=== PATIENT | female | born 1950 | race Caucasian/White ===

== ENCOUNTER 2023-12-18 17:25 | Emergency (ER) | payer MEDICARE ==
[2023-12-18] MEDS ORDERED: ONDANSETRON 4 MG/2 ML VIAL ONE (18:15)
[2023-12-18] MEDS ORDERED: FAMOTIDINE 20 MG/2 ML VIAL IV ONE (18:16)
[2023-12-18] MEDS ORDERED: NA CHLORIDE 0.9% 500 ML ONE (18:16)
[2023-12-18 18:28] LABS: Urine Bilirubin NEGATIVE (Negative); Urine Blood Negative (Negative); Urine Clarity Clear (Clear); Urine Color Light-Yellow (Yellow); Urine Glucose NEGATIVE (Negative); Urine Ketones 2+ (Negative); Urine Microscopic Reflex YN NO UMIC; Urine Nitrite NEGATIVE (Negative); Urine Protein NEGATIVE (Negative); Urine Urobilinogen Normal (Normal); Urine pH 5.5 (5.0-7.0)
[2023-12-18 18:38] LABS: Absolute Eosinophils 0.1 K/uL (0-0.5); Absolute Lymphocytes (CBC) 1.4 K/uL (0.7-4.9); Absolute Monocytes 0.3 K/uL (0.1-1.3); Absolute Neutrophil 3.3 K/uL (1.8-8.0); Basophils % 0.5 % (0-1.3); Eosinophils % 1.6 % (0-4.4); Hematocrit 42.4 % (36.0-45.0); Hemoglobin 14.2 g/dL (12.0-15.0); Lymphocytes % 27.7 % (15.3-44.8); MCH 30.6 pg (27.0-35.0); MCHC 33.4 g/dL (32.0-36.0); MCV 91.5 fL (80-100); MPV 7.6 fL (7.6-11.3); Monocytes % 6.6 % (3.3-12.3); Neutrophils % 63.6 % (41.7-73.7); Nucleated Red Blood Cells % 0.1 % (0-0); Platelets 262 thou/uL (152-406); RBC Red Blood Cell Count 4.63 M/uL (3.86-4.86)
[2023-12-18 18:48] LABS: Albumin/Globulin Ratio 1.3 (1.1-1.8); Anion Gap 10.5 mEq/L (5.0-15.0); Bilirubin Total 0.5 mg/dL (0.2-1.0); Globulin 3.1 g/dL (2.3-3.5); Potassium 3.5 mEq/L (3.5-5.1); Protein, Total 7.1 g/dL (6.4-8.2)
--- NOTE | 2023-12-18 19:31 | RAD REPORT ---
EXAM DESCRIPTION: CTAbdomen Pelvis W Contrast - 12/18/2023 7:21 pm CLINICAL HISTORY: Abdominal pain. ABD PAIN COMPARISON: <Comparisons> TECHNIQUE: Venous phase CT imaging of the abdomen and pelvis was performed with 100 ml non-ionic IV contrast. All CT scans are performed using dose optimization technique as appropriate and may include automated exposure control or mA/KV adjustment according to patient size. FINDINGS: Mild linear atelectasis in the left lung base. The liver demonstrates multiple benign cysts. Spleen, pancreas, adrenal glands and kidneys are within normal limits. No bowel obstruction, free air, free fluid or abscess. Significant stool is present throughout the co river. Diverticulosis coli without diverticulitis. The appendix is not identified as a discrete structu re, however, no secondary findings of appendicitis are identified. No evidence of significant lymph adenopathy. No suspicious bony findings. IMPRESSION: Significant stool is present throughout the colon with sigmoid diverticulosis coli witho ut diverticulitis.
[2023-12-18] MEDS ORDERED: KETOROLAC 30 MG/ML INJ ONE (19:40)
[2023-12-18] MEDS ORDERED: BISACODYL E.C. 5 MG TAB PO ONE (19:40)
--- NOTE | 2023-12-18 19:56 | ER ---
Nurse's Notes [facility] Name: Nesha Mueller Age: 73 yrs Sex: Female : 1950 Arrival Date: 12/18/2023 Time: 17:25 Bed 5 Private MD: Diagnosis: Upper abdominal pain, unspecified;Constipation Presentation: 12/17 17:34 Chief complaint: Patient states: Hx of abdominal issues, cramping, diarrhea that has ph been ongoing for a few weeks, woke up at 2 am w/ severe upper abdominal pain, also c/o pain in bilateral lower abdomen and lower back. Coronavirus screen: Vaccine status: Patient reports receiving the 2nd dose of the covid vaccine. Ebola Screen: No symptoms or risks identified at this time. Initial Sepsis Screen: Does the patient meet any 2 criteria? No. Patient's initial sepsis screen is negative. Does the patient have a suspected source of infection? No. Patient's initial sepsis screen is negative. Risk Assessment: Do you want to hurt yourself or someone else? Patient reports no desire to harm self or others. Onset of symptoms was December 18, 2023. 17:34 Method Of Arrival: Ambulatory ph 17:41 Acuity: LEANDRO 3 ph Historical: - Allergies: 17:41 No Known Allergies; ph - PMHx: 17:41 abdominal hernia; IBS; GERD; ph - Immunization history:: Adult Immunizations up to date. - Infectious Disease History:: Denies. - Social history:: Smoking status: Patient denies any tobacco usage or history of. Screenin:03 [facility] ED Fall Risk Assessment (Adult) History of falling in the last 3 months, mb9 including since admission No falls in past 3 months (0 pts) Confusion or Disorientation No (0 pts) Intoxicated or Sedated No (0 pts) Impaired Gait No (0 pts) Mobility Assist Device Used No (0 pt) Altered Elimination No (0 pt) Score/Fall Risk Level 0 - 2 = Low Risk Oriented to surroundings, Maintained a safe environment, Educated pt \T\ family on fall prevention, incl call for assistance when getting out of bed. Abuse screen: Denies threats or abuse. Nutritional screening: No deficits noted. Tuberculosis screening: No symptoms or risk factors identified. Assessment: 19:03 General: Appears in no apparent distress. Behavior is calm, cooperative. Pain: mb9 Complains of pain in abdomen Pain does not radiate. Quality of pain is described as crampy. Neuro: [place] Agitation-Sedation Scale (RASS): 0 - Alert and Calm Level of Consciousness is awake, alert, obeys commands, Oriented to person, place, time, situation, Appropriate for age. Cardiovascular: Patient's skin is warm and dry. Respiratory: Airway is patent Respiratory effort is even, unlabored, Respiratory pattern is regular, symmetrical. GI: Abdomen is flat, non-distended, Bowel sounds present X 4 quads. Abd is soft and non tender X 4 quads. : No signs and/or symptoms were reported regarding the genitourinary system. EENT: No signs and/or symptoms were reported regarding the EENT system. Derm: Skin is pink, warm \T\ dry. Musculoskeletal: Range of motion: intact in all extremities. Vital Signs: 17:41 BP 135 / 83; Pulse 75; Resp 18; Temp 97.1(O); Pulse Ox 98% on R/A; Weight 51.26 kg; ph Height 5 ft. 3 in. ; 19:04 BP 142 / 77; Pulse 70; Resp 16; Pulse Ox 97% on R/A; mb9 20:03 BP 121 / 84; Pulse 74; Resp 16; Temp 97.1; Pulse Ox 98% ; cp4 17:41 Body Mass Index 20.02 (51.26 kg, 160.02 cm) ph ED Course: 17:30 Patient arrived in ED. ph 17:33 Amanda Downing FNP-C is [facility]. kb 17:33 Ramakrishna Epstein MD is Attending Physician. kb 17:42 Triage completed. ph 17:42 Arm band placed on. ph 18:21 Urinalysis w/ reflexes Sent. ar6 18:25 Inserted saline lock: 20 gauge in right antecubital area, using aseptic technique. zm Blood collected. Flushed with 10 mL NS. 18:25 CBC with Diff Sent. zm 18:25 CMP Sent. zm 18:25 Lipase Sent. zm 19:03 Placed in gown. Bed in low position. Call light in reach. Side rails up X 1. Provided mb9 Education on: press call light if needing anything. Client placed on continuous cardiac and pulse oximetry monitoring. NIBP monitoring applied. 19:04 No provider procedures requiring assistance completed. mb9 19:23 CT Abd/Pelvis - IV Contrast Only In Process Unspecified. EDMS 20:07 intact, bleeding controlled, No redness/swelling at site. Pressure dressing applied. cp4 Administered Medications: 18:29 Drug: Famotidine IVP 20 mg IVP once; dilute with 10 mL 0.9% NaCl; give over 2 minutes ar6 Route: IVP; Site: right antecubital; 20:08 Follow up: Response: No adverse reaction cp4 18:29 Drug: NS 0.9% IV 500 ml IV at bolus once Route: IV; Rate: bolus; Site: right ar6 antecubital; 20:08 Follow up: Response: No adverse reaction; IV Status: Completed infusion cp4 18:30 Drug: Ondansetron IVP 4 mg IVP once; over 2 minutes Route: IVP; Site: right antecubital;ar6 20:09 Follow up: Response: No adverse reaction cp4 19:43 Drug: Ketorolac IVP 15 mg IVP once Route: IVP; Site: right antecubital; cp4 20:08 Follow up: Response: No adverse reaction; Pain is decreased cp4 19:43 Drug: Dulcolax PO Delayed Release Tablet 5 mg PO once Route: PO; cp4 20:08 Follow up: Response: No adverse reaction cp4 Medication: 19:04 VIS not applicable for this client. mb9 Outcome: 19:56 Discharge ordered by . mo 20:07 Discharged to home ambulatory, cp4 20:07 Condition: stable 20:07 Discharge instructions given to patient, family, Instructed on discharge instructions, follow up and referral plans. Demonstrated understanding of instructions, follow-up care, 20:12 Patient left the ED. cp4 Signatures: Dispatcher [employer] EDMS Amanda Downing, HUMAN RESOURCES CONSULTANT-C HUMAN RESOURCES CONSULTANT-Lanny Tee RN FOX Ramirez, Nusrat López RN RN mb9 Silvina Miller cp4 Masha Smith RN RN ar6
--- NOTE | 2023-12-18 19:56 | EDPHYS ---
Physician Documentation [facility] Name: Nesha Mueller Age: 73 yrs Sex: Female : 1950 Arrival Date: 12/18/2023 Time: 17:25 Bed 5 Private MD: ED Physician Ramakrishna Epstein HPI: 12/17 20:07 This 73 yrs old Female presents to ER via Ambulatory with complaints of Abdominal Pain. kb 20:07 Pt is a 73 year old female who presents for upper abd pain that started last night at kb 0200. States she has had diarrhea and cramping for about 2 weeks, was seen by PCP and given cipro and flagyl on Saturday. States that made her nauseated so she stopped it on Saturday. The upper abd pain woke her up at 0200 this morning, resolved after sucralfate. States she talked to her dr today and she recommended pt come to ER for evaluation just in case it was diverticulitis. Pt denies nausea, vomiting, fever. . Historical: - Allergies: 17:41 No Known Allergies; ph - PMHx: 17:41 abdominal hernia; IBS; GERD; ph - Immunization history:: Adult Immunizations up to date. - Infectious Disease History:: Denies. - Social history:: Smoking status: Patient denies any tobacco usage or history of. ROS: 20:07 Constitutional: As per HPI kb Exam: 20:07 Constitutional: This is a well developed, well nourished patient who is awake, alert, kb and in no acute distress. Head/Face: Normocephalic, atraumatic. ENT: Moist Mucous membranes Cardiovascular: Regular rate Respiratory: Respirations even and unlabored. No increased work of breathing. Talking in full sentences Abdomen/GI: Soft, non-tender. No distention Skin: Warm, dry with normal turgor. Normal color. MS/ Extremity: Pulses equal, no cyanosis. Neurovascular intact. Full, normal range of motion. Neuro: Awake and alert, GCS 15, oriented to person, place, time, and situation. Moves all extremities. Normal gait. Vital Signs: 17:41 BP 135 / 83; Pulse 75; Resp 18; Temp 97.1(O); Pulse Ox 98% on R/A; Weight 51.26 kg; ph Height 5 ft. 3 in. ; 19:04 BP 142 / 77; Pulse 70; Resp 16; Pulse Ox 97% on R/A; mb9 20:03 BP 121 / 84; Pulse 74; Resp 16; Temp 97.1; Pulse Ox 98% ; cp4 17:41 Body Mass Index 20.02 (51.26 kg, 160.02 cm) ph MDM: 17:33 Patient medically screened. kb 20:08 Differential diagnosis: diverticulitis, gastritis, gastroesophageal reflux disease, kb non-specific abd pain, pancreatitis. Data reviewed: vital signs, nurses notes. Historians other than the Patient: Spouse/Significant Other: . Counseling: I had a detailed discussion with the patient and/or guardian regarding the historical points, exam findings, and any diagnostic results supporting the discharge/admit diagnosis, lab results, radiology results, the need for outpatient follow up, a family practitioner, to return to the emergency department if symptoms worsen or persist or if there are any questions or concerns that arise at home. ED course: Pt has appt with Dr Ramirez on Saturday for follow up. 12/17 17:43 Order name: CBC with Diff; Complete Time: 18:55 kb 12/17 17:43 Order name: CMP; Complete Time: 18:55 kb 12/17 17:43 Order name: Lipase; Complete Time: 18:55 kb 12/17 17:43 Order name: Urinalysis w/ reflexes; Complete Time: 18:30 kb 12/17 17:43 Order name: CT Abd/Pelvis - IV Contrast Only; Complete Time: 19:32 kb 12/17 17:43 Order name: IV Saline Lock; Complete Time: 18:23 kb 12/17 17:43 Order name: Labs collected and sent; Complete Time: 18:23 kb Administered Medications: 18:29 Drug: Famotidine IVP 20 mg IVP once; dilute with 10 mL 0.9% NaCl; give over 2 minutes ar6 Route: IVP; Site: right antecubital; 20:08 Follow up: Response: No adverse reaction cp4 18:29 Drug: NS 0.9% IV 500 ml IV at bolus once Route: IV; Rate: bolus; Site: right ar6 antecubital; 20:08 Follow up: Response: No adverse reaction; IV Status: Completed infusion cp4 18:30 Drug: Ondansetron IVP 4 mg IVP once; over 2 minutes Route: IVP; Site: right antecubital;ar6 20:09 Follow up: Response: No adverse reaction cp4 19:43 Drug: Ketorolac IVP 15 mg IVP once Route: IVP; Site: right antecubital; cp4 20:08 Follow up: Response: No adverse reaction; Pain is decreased cp4 19:43 Drug: Dulcolax PO Delayed Release Tablet 5 mg PO once Route: PO; cp4 20:08 Follow up: Response: No adverse reaction cp4 Disposition Summary: 12/18/23 19:56 Discharge Ordered Notes: Location: Home kb Condition: Stable kb Diagnosis - Upper abdominal pain, unspecified kb - Constipation kb Followup: kb - With: Private Physician - When: 2 - 3 days - Reason: Recheck today's complaints, Continuance of care, Re-evaluation by your physician Followup: kb - With: Emergency Department - When: As needed - Reason: Worsening of condition Discharge Instructions: - Discharge Summary Sheet kb - Constipation, Adult, [id number] kb - Abdominal Pain, Adult, [id number] kb Forms: - Medication Reconciliation Form kb - Antibiotic Education kb - Prescription Opioid Use kb - Patient Portal Instructions kb - Leadership Thank You Letter kb Signatures: Dispatcher [employer] EDMS Amanda Downing, ROBOTICS TECHNOLOGIST-C ROBOTICS TECHNOLOGIST-Lanny Tee, RN RN laron Childs, Nusrat Nguyen, RN RN mb9 Silvina Miller cp4 Masha Smith, RN RN ar6 Corrections: (The following items were deleted from the chart) 17:43 17:43 CBC+H.LAB.BRZ ordered. EDMS EDMS 17:43 17:43 COMPREHENSIVE METABOLIC PANEL+C.LAB.BRZ ordered. EDMS EDMS 17:43 17:43 LIPASE+C.LAB.BRZ ordered. EDMS EDMS 17:43 17:43 Urinalysis+U.LAB.BRZ ordered. EDMS EDMS 17:43 17:43 Abdomen Pelvis W Con+CT.RAD.BRZ ordered. EDMS EDMS
[2023-12-18 21:12] VITALS: TEMP 97.1
[2023-12-18 21:15] VITALS: BP 121/84; O2SAT 98
== END 2023-12-18 20:12 | disposition home or self-care (01) ==
LOC: ER 17:25
DX: K59.00 Constipation, unspecified (principal)
CPT/HCPCS: 85025; 36415; 81003; 83690; 80053; 74177; Q9967; J2405; J7040

== ENCOUNTER 2024-02-26 08:18 | Day surgery (SDC) | payer MEDICARE ==
[2024-02-25 14:47] LABS: Absolute Lymphocytes (CBC) 1.4 K/uL (0.7-4.9); Absolute Monocytes 0.3 K/uL (0.1-1.3); Absolute Neutrophil 3.3 K/uL (1.8-8.0); Basophils % 0.6 % (0-1.3); Eosinophils % 0.9 % (0-4.4); Hematocrit 43.7 % (36.0-45.0); Hemoglobin 14.4 g/dL (12.0-15.0); Lymphocytes % 27.1 % (15.3-44.8); MCH 30.8 pg (27.0-35.0); MCV 93.4 fL (80-100); MPV 7.9 fL (7.6-11.3); Monocytes % 6.7 % (3.3-12.3); Neutrophils % 64.7 % (41.7-73.7); Platelets 228 thou/uL (152-406); RBC Red Blood Cell Count 4.68 M/uL (3.86-4.86); Red Cell Distribution Width 12.8 % (12.1-15.2)
[2024-02-25 15:18] LABS: Anion Gap 7.6 mEq/L (5.0-15.0); Potassium 3.6 mEq/L (3.5-5.1)
--- NOTE | 2024-02-25 22:26 | RAD REPORT ---
EXAMINATION: TWO VIEW CHEST XR CLINICAL INDICATION: Female, 73 years old. [facility] Pre-op pending hernia repair TECHNIQUE: 2 view radiographs of the chest were performed. COMPARISON: No prior exam. FINDINGS: The lungs are hyperexpanded suggesting COPD. No pneumothorax or sizable effusion. The heart is normal in size. Mediastinal contours are unremarkable. IMPRESSION: No acute or significant abnormalities. Sequelae of COPD.
[2024-02-26] MEDS ORDERED: propofoL 200 MG/20 ML VIAL IV ONE (08:43)
[2024-02-26] MEDS ORDERED: dexAMETHasone 10 MG/ML VIAL ONE (08:43)
[2024-02-26] MEDS ORDERED: ONDANSETRON 4 MG/2 ML VIAL ONE (08:43)
[2024-02-26] MEDS ORDERED: FENTANYL CITR 100 MCG/2 ML ONE (08:44)
[2024-02-26] MEDS ORDERED: LIDOCAINE 2% MPF 5 ML VIAL ONE (08:44)
[2024-02-26] MEDS ORDERED: ROCURONIUM 50 MG/5 ML VIAL IV ONE (08:44)
[2024-02-26] MEDS: Ringers Lactate 1,000 ML IV ONE (08:45)
[2024-02-26] MEDS: CEFAZOLIN SODIUM 1 GM/VIAL ONE (10:02)
[2024-02-26] MEDS ORDERED: GLYCOPYRROLATE 0.2 MG/ML SYR ONE (10:48)
[2024-02-26] MEDS ORDERED: NEOSTIGMINE 1 MG/ML -10 ML VIAL ONE (10:48)
[2024-02-26] MEDS ORDERED: Mastisol Adhesive Liq ONE (10:51)
--- NOTE | 2024-02-26 11:05 | P.BOP ---
Preoperative diagnosis: incarcerated ventral hernia Postoperative diagnosis: same plus intrabdominal adhesions Primary procedure: 1. Laparoscopic repair of incarcerated ventral hernia 3cm with mesh Secondary procedure: 2. Laparoscopic lysis of adhesions Estimated blood loss: <10cc Specimen: sac and content Findings: incarcerated omemtum Anesthesia: General Complications: None Implants: ventralex medium Transferred to: Recovery Room Condition: Good
[2024-02-26] MEDS: ONDANSETRON 4 MG/2 ML VIAL ONE (11:21)
[2024-02-26] MEDS: HYDROMORPHONE HCL 1 MG/ML INJ ONE (11:21)
[2024-02-26] MEDS: CODEINE 30MG/APAP 300MG TAB ONE (12:30)
[2024-02-26 13:38] VITALS: BP 135/69; TEMP 97.2; O2SAT 98
--- NOTE | 2024-02-26 14:49 | EKG ---
Test Date: 2024-02-25 Test Time: 14:28:17 Set Up Mechanic Stamping Machines: ZACH MEASUREMENT RESULTS: Intervals: Rate: 60 NJ: 170 QRSD: 86 QT: 404 QTc: 404 [place]: P: 51 NJ: 170 QRS: 89 T: -8 INTERPRETIVE STATEMENTS: Normal sinus rhythm RSR' or QR pattern in V1 suggests right ventricular conduction delay Septal infarct, age undetermined Abnormal ECG No previous ECG available for comparison Electronically Signed On 02-26-24 14:46:17 CDT by Robert Peralta
--- NOTE | 2024-02-26 14:49 | EKG ---
Test Date: 2024-02-25 Test Time: 14:29:17 Drafter Tool Design: ZACH MEASUREMENT RESULTS: Intervals: Rate: 63 NM: 170 QRSD: 84 QT: 410 QTc: 419 [place]: P: 48 NM: 170 QRS: 92 T: -6 INTERPRETIVE STATEMENTS: Normal sinus rhythm Rightward axis RSR' or QR pattern in V1 suggests right ventricular conduction delay Abnormal QRS-T angle, consider primary T wave abnormality Abnormal ECG Compared to ECG 02/25/2024 14:28:17 Right-axis deviation now present T-wave abnormality now present Myocardial infarct finding no longer present Electronically Signed On 02-26-24 14:46:16 CDT by Robert Peralta
--- NOTE | 2024-02-28 19:42 | OP ---
Date of Procedure: 02/26/2024 Surgeon: Kartik Ramirez MD Preoperative Diagnosis: Incarcerated ventral hernia. Postoperative Diagnoses: Incarcerated ventral hernia plus intraabdominal adhesions. Procedures: Laparoscopic repair of incarcerated ventral hernia with mesh. Laparoscopic lysis of adh esions. Estimated Blood Loss: Less than 10 cc. Specimen: Hernia sac and contents. Findings: Incarcerated omentum. Anesthesia: General plus local. Implant: Medium Ventralex. Findings: The size of the hernia is about 2.5 to 3 cm. Complications: None. Indications: This is a case of a female, who came to us with a tender hernia. The benefi ts, alternatives, and risks of laparoscopic possible open repair with possible mesh fully explained, which include, but not limited to, infection, bleeding, damage to adjacent structures, anesthesia com plication, recurrence, RI, and even . She also understands this may not relieve any symptoms. She might need more than one surgical intervention. She also understands she might need mesh. So th e pros and cons of mesh, we discussed with the patient. All the questions answered to her satisfacti on and she signed a consent. Description Of Procedure: The patient was brought to the operating room, placed in supine position. Anesthesia was induced without complication. Abdominal area was prepped and draped in a sterile fas hion. Time-out was called. Local anesthesia was applied followed by sharp incision of the skin. In cision was carried down until we found the hernia sac. Hernia sac was dissected free from the rest o f the subcutaneous tissue, opened, noticed to have some incarcerated omentum in that area. Adhesions were present, hard to reduce due to the adhesions, so we will do that laparoscopically. We managed to place a Vicryl #1 inside of the fascia. Cira trocar was carefully introduced and pneumoperitone um was obtained. At that moment, I placed 5 mm trocars, two of them, one on the left, and another on e on the right under direct visualization after making a small incision and introduction of the troca rs under direct vision. We changed the camera to the lateral trocar and we were able to visualize th e center, and why this omentum was having some difficult to retract and this was because she has mult iple adhesions. So we spent half the case just doing lysis of adhesions with the help of a LigaSure. We made sure that we cleaned the area in the anterior abdominal wall to make sure that when we put the mesh, it looks nice and flat. After the adhesions were removed, we also inspected the area that was incarcerated. It looks viable. There was no bleeding inside. I selected the Ventralex mesh to cover the area of about 3-5 cm, once we approximated the fascia and introduced that into the abdomina l wall through the Cira trocar. Mesh was pulled through the straps and we secured the mesh underne ath with the SorbaFix. After that, I proceeded then to remove the straps and closed the fascial edge s with #1 Vicryl in a [id number] fashion multiple times, making sure it is air seal. Then we we nt back laparoscopic once again under direct visualization, finishing fixating the mesh to the anteri or abdominal wall circumferentially. Local anesthetic was applied. We noticed the area of lysis of adhesions. No bleeding. At that moment, I proceeded to remove the trocars under direct vision. The n deflated pneumoperitoneum and approximated the subcutaneous tissue with 3-0 chromic and the skin wa s approximated with 3-0 chromic. Sponge counts and instrument counts were correct. Patient tolerate d the procedure well. Patient was sent to Recovery in stable condition. NAHEED/NIRAJ Voice ID: [id number] Report ID: [id number]
--- NOTE | 2024-02-28 19:42 | DS ---
Date of Discharge: 02/26/2024 Diagnoses: Incarcerated ventral hernia and intraabdominal adhesions. Procedures: Laparoscopic repair of incarcerated ventral hernia with mesh and laparoscopic lysis of a dhesions. Disposition: Home. Condition: Stable. Comment: This ventral hernia is supraumbilical. Anesthesia: General. Complications: None. Activity: As tolerated. No heavy lifting. Plan: Follow up in my office in 1 week. Call for appointment at [phone]. Keep area dry for 48 [place] rs, and then may shower. Keep Steri-Strips intact. For medications, see orders. NAHEED/MODL Voice ID: [id number] Report ID: [id number]
== END 2024-02-26 12:35 | disposition home or self-care (01) ==
LOC: OR 08:18
PROVIDERS: ATTEND Surgery
PROC: 0DNW4ZZ Release Peritoneum, Percutaneous Endoscopic Approach (ICD-10-PCS; 2024-02-26)
PROC: 0WUF4JZ Supplement Abdominal Wall with Synthetic Substitute, Percutaneous Endoscopic Approach (ICD-10-PCS; principal; 2024-02-26 10:30)
DX: K43.6 Other and unspecified ventral hernia with obstruction, without gangrene (principal); K66.0 Peritoneal adhesions (postprocedural) (postinfection)
CPT/HCPCS: 49594; 93005 ×2; 85025; 80048; 36415; 88302; 71046; 49329; J2704; J2710; J2003; J3010; J1100; J1171; J2405 ×2; J7120; J0690